=== PATIENT | male | born 1965 | race African-American/Black ===

== ENCOUNTER 2024-06-18 00:17 | Emergency (ER) | payer OTHER ==
[~2024-06-18] VITALS: Ht 170.2 cm; Wt 66.0 kg
[2024-06-18 01:00] VITALS: TEMP 98; O2SAT 97
[2024-06-18] MEDS: IBUPROFEN 600MG TABLET PO ONE (04:54)
[2024-06-18] MEDS ORDERED: IBUP-2028 MT (06:27)
[2024-06-18 06:57] VITALS: BP 96/61; PULSE 64; RESP 18; O2SAT 98
== END 2024-06-18 06:58 | disposition home or self-care (01) ==
LOC: ER 00:17
DX: M25.562 Pain in left knee (principal)
CPT/HCPCS: 73560; 99283

== ENCOUNTER 2025-04-05 13:47 | Emergency (ER) | payer MEDICAID, OTHER ==
[~2025-04-05] VITALS: Ht 172.7 cm; Wt 67.0 kg
[~2025-04-05 13:47] MED LIST: IBUP-2028 MT
[2025-04-05 13:49] VITALS: TEMP 37.1; O2SAT 98
[2025-04-05 17:22] LABS: BASOPHILS % 0.8 % (0.0-2.0); EOSINOPHILS % 1.2 % (0.0-5.0); HEMATOCRIT. 37.9 % (42.0-52.0); HEMOGLOBIN. 12.8 g/dL (14.0-18.0); LYMPHOCYTES % 37.3 % (20.0-50.0); MEAN CORPUSCULAR HEMOGLOBIN 29.4 pg (28.0-32.0); MEAN CORPUSCULAR HGB CONC 33.7 g/dL (31.0-37.0); MEAN CORPUSCULAR VOLUME 87.1 fL (80.0-94.0); MEAN PLATELET VOLUME 8.6 fl (7.4-10.4); MONOCYTES % 14.7 % (2.0-8.0); PLATELET 188 x1000/uL (130-400); RED BLOOD CELL COUNT 4.35 mill/uL (4.7-6.1); RED CELL DISTRIBUTION WIDTH 13.7 % (11.6-14.6); WHITE BLOOD COUNT 6.8 x1000/uL (4.5-11.0)
[2025-04-05 17:30] LABS: CHLORIDE 107 mEq/L (98-107); POTASSIUM 3.7 mEq/L (3.5-5.1); SODIUM 143 mEq/L (136-145)
[2025-04-05 17:31] LABS: CALCIUM 10.1 mg/dL (8.7-10.4); CARBON DIOXIDE 25 mEq/L (21-32)
[2025-04-05 17:36] LABS: CREATININE 1.4 mg/dL (0.6-1.3); GLUCOSE 89 mg/dL (70-105); UREA NITROGEN BLOOD 19 mg/dL (9-23)
[2025-04-05 17:38] LABS: ALANINE AMINOTRANSFERASE 13 IU/L (10-49); ALBUMIN 4.6 g/dL (3.2-4.8); ASPARTATE AMINOTRANSFERASE 19 IU/L (<34); BILIRUBIN DIRECT 0.2 mg/dL (<=3.0)
[2025-04-05 17:39] LABS: BILIRUBIN TOTAL 0.7 mg/dL (0.1-1.0); PROTEIN TOTAL 7.5 g/dL (6.0-8.3)
[2025-04-05 17:50] VITALS: BP 97/66; PULSE 90; RESP 18
[2025-04-05] MEDS: KETOROLAC 30MG/ML VIAL IM STA (17:50)
[2025-04-05] MEDS ORDERED: DOCU-422 MT (18:53)
[2025-04-05] MEDS ORDERED: SIME125C MT (18:53)
[2025-04-05] MEDS ORDERED: ACET-2708 PO (18:53)
[2025-04-05] MEDS ORDERED: POLY250017 MT (18:53)
== END 2025-04-05 19:07 | disposition home or self-care (01) ==
LOC: ER 13:47
DX: K52.9 Noninfective gastroenteritis and colitis, unspecified (principal); K59.00 Constipation, unspecified; R10.9 Unspecified abdominal pain; I10 Essential (primary) hypertension; Z59.00 Homelessness unspecified; Z79.899 Other long term (current) drug therapy
CPT/HCPCS: 99285; 74176; 80076; 80048; 83690; 85025; 36415; 96372; J1885